=== PATIENT | female | born 1985 | race Caucasian/White ===

== ENCOUNTER 2018-02-19 09:07 | Emergency (ER) | payer MEDICAID ==
[~2018-02-19] VITALS: Ht 162.6 cm; Wt 70.0 kg
[~2018-02-19 09:07] MED LIST: AMAN100T PO; HYDR-3237 PO; IBUP-1484 PO; PARO20TA98 PO; PARO40TA61 PO
[2018-02-19 10:16] LABS: BASOPHILS # (AUTO) 0.05 x10^3/uL (0-0.1); BASOPHILS % (AUTO) 1 % (0-1); EOSINOPHILS # (AUTO) 0.01 x10^3/uL (0-0.4); EOSINOPHILS % (AUTO) 0 % (1-7); LYMPHOCYTES # (AUTO) 1.11 x10^3/uL (1-3.4); LYMPHOCYTES % (AUTO) 12 % (22-44); MD NO; MEAN CORPUSCULAR HEMOGLOBIN 28.9 pg (27.0-34.8); MEAN CORPUSCULAR HGB CONC 33.5 g/dL (32.4-35.8); MEAN CORPUSCULAR VOLUME 86.4 fL (80-100); MEAN PLATELET VOLUME 8.6 fL (7.4-10.4); MONOCYTES # (AUTO) 0.46 x10^3/uL (0.2-0.8); MONOCYTES % (AUTO) 5 % (2-9); NEUTROPHILS # (AUTO) 7.45 x10^3/uL (1.8-6.8); NEUTROPHILS % (AUTO) 82 % (42-75); PLATELET COUNT 397 x10^3/uL (130-400); RED BLOOD COUNT 5.18 x10^6/uL (3.82-5.3); RED CELL DISTRIBUTION WIDTH 12.4 % (9.6-15.2)
[2018-02-19 10:26] LABS: ALBUMIN 3.8 g/dL (3.4-5.0); ANION GAP 8 mmol/L (5-15); CHLORIDE 107 mmol/L (98-107); CREATININE 0.72 mg/dL (0.55-1.02)
[2018-02-19] MEDS ORDERED: KETOROLAC 30 MG/1 ML IVPush ONE (10:30)
[2018-02-19] MEDS ORDERED: METOCLOPRAMIDE 5 MG/ML, 2ML IVPush ONE (10:30)
[2018-02-19] MEDS ORDERED: DIPHENHYDRAMINE 50 MG/ML, 1ML IVPush ONE (10:30)
[2018-02-19] MEDS ORDERED: METOCLOPRAMIDE 5 MG/ML, 2ML ONE (10:42)
[2018-02-19] MEDS ORDERED: KETOROLAC 30 MG/1 ML ONE (10:42)
[2018-02-19] MEDS ORDERED: DIPHENHYDRAMINE 50 MG/ML, 1ML ONE (10:43)
[2018-02-19] MEDS ORDERED: GADOBUTROL 7.5 MMOL/7.5 ML PFS ONE (11:54)
[2018-02-19] MEDS ORDERED: CEPHALEXIN 500 MG CAPSULE PO ONE (12:00)
[2018-02-19 12:15] VITALS: BP 128/74
== END 2018-02-19 15:02 | disposition home or self-care (01) ==
LOC: ED 11:10
DX: H53.131 Sudden visual loss, right eye (principal); R51 Headache; F41.1 Generalized anxiety disorder
CPT/HCPCS: 36415; 70543; 70553; 80048; 82040; 85025; 96374; 96375; 99285; A9585; J1200; J1885; J2765

== ENCOUNTER 2018-06-01 19:23 | Inpatient (IN) | payer MEDICAID ==
[~2018-06-01] VITALS: Ht 165.1 cm; Wt 59.5 kg
[2018-06-01] MEDS ORDERED: ONDANSETRON 2MG/ML, 2ML ONE (19:58)
[2018-06-01] MEDS ORDERED: MORPHINE SULFATE 4 MG/ML, 1ML ONE ×2 (19:58→21:04)
[2018-06-01] MEDS ORDERED: ONDANSETRON 2MG/ML, 2ML IVPush ONE (20:00)
[2018-06-01] MEDS ORDERED: PLEASE ENTER HEIGHT AND WEIGHT MC SCH (20:00)
[2018-06-01] MEDS: MORPHINE SULFATE 4 MG/ML, 1ML IVPush PRN ×2 (20:05→21:07)
--- NOTE | 2018-06-01 21:56 | NUR ---
PT C/O PAIN WHEN SWALLOWING. PT ABLE TO SPEAK IN FULL SENTENCES AND IS ABLE TO SWALLOW SECRETIONS. PT AWAITING CT AND IS VERY IMPATIENT AT THIS TIME. PT MEDICATED AGAIN FOR PAIN. VSS AND WILL CONT TO MONITOR.
--- NOTE | 2018-06-01 21:59 | NUR ---
PT RETURNED FROM CT.
[2018-06-01] MEDS ORDERED: HYDROmorphone 2 MG/ML, 1ML ONE (22:56)
[2018-06-01] MEDS ORDERED: HYDROmorphone 1 MG/ML, 1ML IV ONE (23:00)
--- NOTE | 2018-06-01 23:15 | NUR ---
PT MEDICATED FOR PAIN, PT AWARE SHE IS TO BE ADMITTED. VSS AND WILL CONT TO MONITOR.
[2018-06-01] MEDS ORDERED: BISACODYL 10 MG SUPP PR PRN (23:30)
[2018-06-01] MEDS ORDERED: ONDANSETRON 2MG/ML, 2ML IVPush PRN (23:30)
[2018-06-01 23:39] VITALS: BP 127/89
[2018-06-01] MEDS: SODIUM CHLORIDE 0.9% 1,000 ML IV SCH (23:56)
[2018-06-02] MEDS: NICOTINE 14MG/24 HR PATCH.TD24 TD SCH ×2 (00:38→23:38)
[2018-06-02] MEDS: morphine SULFATE 10 MG/ML, 1ML IVPush PRN ×3 (00:38→06:35)
[2018-06-02 02:57] VITALS: BP 116/77
[2018-06-02 04:55] LABS: BASOPHILS # (AUTO) 0.08 x10^3/uL (0-0.1); BASOPHILS % (AUTO) 1 % (0-1); EOSINOPHILS % (AUTO) 3 % (1-7); LYMPHOCYTES # (AUTO) 2.08 x10^3/uL (1-3.4); LYMPHOCYTES % (AUTO) 29 % (22-44); MD NO; MEAN CORPUSCULAR HEMOGLOBIN 29.6 pg (27.0-34.8); MEAN CORPUSCULAR HGB CONC 34.2 g/dL (32.4-35.8); MEAN CORPUSCULAR VOLUME 86.6 fL (80-100); MEAN PLATELET VOLUME 8.8 fL (7.4-10.4); MONOCYTES % (AUTO) 8 % (2-9); NEUTROPHILS % (AUTO) 59 % (42-75); PLATELET COUNT 324 x10^3/uL (130-400); RED BLOOD COUNT 4.77 x10^6/uL (3.82-5.3); RED CELL DISTRIBUTION WIDTH 12.8 % (9.6-15.2)
[2018-06-02 05:05] LABS: ALBUMIN 3.2 g/dL (3.4-5.0); ANION GAP 6 mmol/L (5-15); CALCIUM 8.5 mg/dL (8.5-10.1); CHLORIDE 105 mmol/L (98-107)
[2018-06-02 05:10] LABS: ALANINE AMINOTRANSFERASE 11 U/L (12-78); ALKALINE PHOSPHATASE 98 U/L (45-117); BILIRUBIN,TOTAL 0.8 mg/dL (0.2-1.0); CREATININE 0.67 mg/dL (0.55-1.02); TOTAL PROTEIN 6.9 g/dL (6.4-8.2)
[2018-06-02 07:11] VITALS: BP 102/68
[2018-06-02] MEDS: SODIUM CHLORIDE 0.9% 1,000 ML IV SCH ×2 (09:17→23:38)
[2018-06-02] MEDS: HYDROmorphone 2 MG/ML, 1ML IVPush PRN ×4 (10:14→22:20)
[2018-06-02 12:14] VITALS: BP 107/71
[2018-06-02 15:45] LABS: AMPHETAMINE SCREEN, URINE Positive (Negative); BARBITURATE SCREEN, URINE Negative (Negative); BENZODIAZEPINE SCREEN, URINE Negative (Negative); CANNABINOID SCREEN, URINE Negative (Negative); COCAINE SCREEN, URINE Negative (Negative); METHADONE SCREEN, URINE Negative (Negative); OPIATE SCREEN, URINE Positive (Negative)
[2018-06-02 19:33] VITALS: BP 109/81
[2018-06-02] MEDS: PAROXETINE 20 MG TABLET PO SCH (21:00)
[2018-06-03 05:06] VITALS: BP 97/68
[2018-06-03] MEDS: HYDROmorphone 2 MG/ML, 1ML IVPush PRN ×5 (05:09→21:14)
[2018-06-03] MEDS: SODIUM CHLORIDE 0.9% 1,000 ML IV SCH ×3 (05:15→21:14)
[2018-06-03 07:06] VITALS: BP 105/73
[2018-06-03 13:19] VITALS: BP 137/72
[2018-06-03] MEDS: PAROXETINE 20 MG TABLET PO SCH (19:09)
[2018-06-03 20:45] VITALS: BP 122/79
[2018-06-03] MEDS: NICOTINE 14MG/24 HR PATCH.TD24 TD SCH (23:03)
[2018-06-04] MEDS: HYDROmorphone 2 MG/ML, 1ML IVPush PRN ×10 (00:47→23:47)
[2018-06-04 01:30] VITALS: BP 126/90
[2018-06-04] MEDS: SODIUM CHLORIDE 0.9% 1,000 ML IV SCH ×2 (03:38→11:17)
[2018-06-04 07:13] VITALS: BP 128/74
[2018-06-04] MEDS ORDERED: MIDAZOLAM 1 MG/ML, 2ML ONE (12:24)
[2018-06-04] MEDS ORDERED: FENTANYL PF 250 MCG/5ML ONE (12:24)
[2018-06-04] MEDS ORDERED: LIDOCAINE 1%-EPI 1:100K, 20ML ONE (12:55)
[2018-06-04] MEDS ORDERED: BALANCED SALT OPHTH IRRIG SOLN 18ML ONE (12:55)
[2018-06-04] MEDS ORDERED: OXYMETAZOLINE NASAL SPRAY 0.05%, 15ML ONE (12:55)
[2018-06-04 13:11] LABS: HCG UR SG 1.007 (1.003-1.030)
[2018-06-04] MEDS ORDERED: LIDOCAINE 1%-EPI 1:100K, 20ML INFIL ONE (14:11)
[2018-06-04] MEDS ORDERED: DIAZEPAM 5 MG/ML, 2ML IVPush PRN (14:30)
[2018-06-04] MEDS ORDERED: ONDANSETRON 2MG/ML, 2ML IV PRN (14:30)
[2018-06-04] MEDS ORDERED: PROMETHAZINE 25 MG/ML, 1ML IV PRN (14:30)
[2018-06-04] MEDS ORDERED: OXYcodone 5 MG/5 ML ORAL.SOL UDC PO PRN (14:30)
[2018-06-04] MEDS ORDERED: MEPERIDINE/PF 25MG/0.5ML IVPush PRN (14:30)
[2018-06-04] MEDS ORDERED: ACETAMINOPHEN 325 MG TABLET PO PRN (14:30)
[2018-06-04] MEDS ORDERED: ONDANSETRON ODT 8 MG PO PRN (14:30)
[2018-06-04] MEDS ORDERED: ONDANSETRON 2MG/ML, 2ML ONE (14:34)
[2018-06-04] MEDS ORDERED: GLYCOPYRROLATE 0.2MG/1ML, 5ML ONE (14:34)
[2018-06-04] MEDS ORDERED: SUCCINYLCHOLINE 20 MG/ML, 10ML ONE (14:34)
[2018-06-04] MEDS ORDERED: DEXAMETHASONE 4 MG/ML, 1ML ONE (14:34)
[2018-06-04] MEDS ORDERED: NEOSTIGMINE 1 MG/ML, 10ML ONE (14:34)
[2018-06-04] MEDS ORDERED: ROCURONIUM 10MG/ML,5ML ONE (14:34)
[2018-06-04] MEDS ORDERED: PROPOFOL 10 MG/ML, 20ML ONE (14:34)
[2018-06-04] MEDS ORDERED: CEFAZOLIN 1,000 MG ONE (14:34)
[2018-06-04] MEDS ORDERED: FENTANYL PF 100 MCG/2ML ONE ×2 (14:35→17:12)
[2018-06-04] MEDS ORDERED: MEPERIDINE/PF 50 MG/ML ONE (14:35)
[2018-06-04] MEDS ORDERED: BACITRACIN OINT 500U/GM, 15 GM ONE (16:39)
[2018-06-04] MEDS ORDERED: HYDROmorphone 2 MG/ML, 1ML ONE (17:13)
[2018-06-04] MEDS: FENTANYL PF 100 MCG/2ML IV PRN ×2 (17:20→17:54)
[2018-06-04] MEDS: AMPICILLIN/SULBACTAM 3 GM in SODIUM CHLORIDE 0.9% 100 ML IV SCH (19:24)
[2018-06-04 20:05] VITALS: BP 108/68
[2018-06-04] MEDS ORDERED: PAROXETINE 20 MG TABLET PO SCH (21:00)
[2018-06-04] MEDS: NICOTINE 14MG/24 HR PATCH.TD24 TD SCH (23:47)
[2018-06-05 00:05] VITALS: BP 125/69
[2018-06-05] MEDS: AMPICILLIN/SULBACTAM 3 GM in SODIUM CHLORIDE 0.9% 100 ML IV SCH ×4 (01:44→19:44)
[2018-06-05] MEDS: HYDROmorphone 2 MG/ML, 1ML IVPush PRN ×5 (03:48→22:32)
[2018-06-05 04:08] VITALS: BP 110/71
[2018-06-05 06:01] LABS: ANION GAP 8 mmol/L (5-15); BASOPHILS # (AUTO) 0.01 x10^3/uL (0-0.1); BASOPHILS % (AUTO) 0 % (0-1); CALCIUM 8.5 mg/dL (8.5-10.1); CHLORIDE 103 mmol/L (98-107); EOSINOPHILS % (AUTO) 0 % (1-7); LYMPHOCYTES # (AUTO) 0.57 x10^3/uL (1-3.4); LYMPHOCYTES % (AUTO) 5 % (22-44); MD NO; MEAN CORPUSCULAR HEMOGLOBIN 29.5 pg (27.0-34.8); MEAN CORPUSCULAR HGB CONC 33.8 g/dL (32.4-35.8); MEAN CORPUSCULAR VOLUME 87.2 fL (80-100); MEAN PLATELET VOLUME 8.5 fL (7.4-10.4); MONOCYTES # (AUTO) 0.38 x10^3/uL (0.2-0.8); MONOCYTES % (AUTO) 3 % (2-9); NEUTROPHILS # (AUTO) 11.59 x10^3/uL (1.8-6.8); NEUTROPHILS % (AUTO) 92 % (42-75); PLATELET COUNT 331 x10^3/uL (130-400); RED CELL DISTRIBUTION WIDTH 12.4 % (9.6-15.2)
[2018-06-05 06:03] LABS: CREATININE 0.53 mg/dL (0.55-1.02)
[2018-06-05] MEDS: OXYcodone IR 5MG TABLET PO PRN (08:17)
[2018-06-05 09:13] VITALS: BP 113/52
[2018-06-05] MEDS: ACETAMINOPHEN 325 MG TABLET PO SCH ×4 (11:28→23:36)
[2018-06-05 12:26] VITALS: BP 120/81
[2018-06-05] MEDS: GABAPENTIN 300 MG CAPSULE PO PRN (17:38)
[2018-06-05 19:05] VITALS: BP 128/82
[2018-06-05] MEDS: NICOTINE 14MG/24 HR PATCH.TD24 TD SCH (23:30)
[2018-06-06 01:18] VITALS: BP 129/86
[2018-06-06] MEDS: AMPICILLIN/SULBACTAM 3 GM in SODIUM CHLORIDE 0.9% 100 ML IV SCH ×4 (01:39→19:44)
[2018-06-06] MEDS: OXYcodone IR 5MG TABLET PO PRN ×3 (03:23→20:18)
[2018-06-06] MEDS: ACETAMINOPHEN 325 MG TABLET PO SCH ×6 (03:30→23:30)
[2018-06-06] MEDS: HYDROmorphone 2 MG/ML, 1ML IVPush PRN ×4 (04:56→22:09)
[2018-06-06 05:27] LABS: BASOPHILS # (AUTO) 0.05 x10^3/uL (0-0.1); BASOPHILS % (AUTO) 1 % (0-1); EOSINOPHILS # (AUTO) 0.09 x10^3/uL (0-0.4); EOSINOPHILS % (AUTO) 1 % (1-7); LYMPHOCYTES # (AUTO) 2.48 x10^3/uL (1-3.4); LYMPHOCYTES % (AUTO) 29 % (22-44); MD NO; MEAN CORPUSCULAR HEMOGLOBIN 29.4 pg (27.0-34.8); MEAN CORPUSCULAR VOLUME 86.5 fL (80-100); MEAN PLATELET VOLUME 8.3 fL (7.4-10.4); MONOCYTES # (AUTO) 0.52 x10^3/uL (0.2-0.8); MONOCYTES % (AUTO) 6 % (2-9); NEUTROPHILS # (AUTO) 5.52 x10^3/uL (1.8-6.8); NEUTROPHILS % (AUTO) 64 % (42-75); PLATELET COUNT 342 x10^3/uL (130-400); RED BLOOD COUNT 4.31 x10^6/uL (3.82-5.3); RED CELL DISTRIBUTION WIDTH 12.3 % (9.6-15.2)
[2018-06-06 05:30] LABS: CHLORIDE 106 mmol/L (98-107)
[2018-06-06 05:51] LABS: ALBUMIN 2.9 g/dL (3.4-5.0); ANION GAP 9 mmol/L (5-15); CALCIUM 8.3 mg/dL (8.5-10.1); CREATININE 0.52 mg/dL (0.55-1.02)
[2018-06-06] MEDS ORDERED: POTASSIUM CHLORIDE 60 MEQ in SODIUM CHLORIDE 0.9% 1,000 ML IV ONE (07:00)
[2018-06-06 07:51] VITALS: BP 133/91
[2018-06-06 15:22] VITALS: BP 126/88
[2018-06-06] MEDS: NICOTINE 14MG/24 HR PATCH.TD24 TD SCH (23:30)
[2018-06-07 00:40] VITALS: BP 134/88
[2018-06-07] MEDS: OXYcodone IR 5MG TABLET PO PRN ×3 (01:13→11:45)
[2018-06-07] MEDS: AMPICILLIN/SULBACTAM 3 GM in SODIUM CHLORIDE 0.9% 100 ML IV SCH ×3 (01:13→13:30)
[2018-06-07] MEDS: HYDROmorphone 2 MG/ML, 1ML IVPush PRN ×3 (02:47→10:47)
[2018-06-07] MEDS: ACETAMINOPHEN 325 MG TABLET PO SCH ×3 (04:19→11:45)
[2018-06-07 05:50] LABS: CHLORIDE 103 mmol/L (98-107)
[2018-06-07 05:54] LABS: ALBUMIN 2.7 g/dL (3.4-5.0); ANION GAP 6 mmol/L (5-15); CALCIUM 8.6 mg/dL (8.5-10.1); CREATININE 0.57 mg/dL (0.55-1.02)
[2018-06-07] MEDS ORDERED: POTASSIUM CHLORIDE 20 MEQ TAB.ER.PRT PO ONE (06:30)
[2018-06-07 07:39] VITALS: BP 117/81
[2018-06-07] MEDS: GABAPENTIN 300 MG CAPSULE PO PRN (09:37)
[2018-06-07] MEDS ORDERED: OXYcodone IR 5MG TABLET PO PRN (12:00)
[2018-06-07] MEDS ORDERED: AMOX1TAB64 PO (13:08)
[2018-06-07] MEDS ORDERED: NICO-486 TD (13:08)
[2018-06-07] MEDS ORDERED: OXYC10TA6 PO (13:44)
[2018-06-07] MEDS ORDERED: HYDROmorphone 1 MG/ML, 1ML IV PRN (15:00)
== END 2018-06-07 14:25 | disposition home or self-care (01) | DRG 132 ==
LOC: ED 20:12 → EDIP 23:02 → 4NOR 23:37
PROVIDERS: ADMIT Hospitalist; ATTEND Hospitalist
PROC: 0NST04Z Reposition Right Mandible with Internal Fixation Device, Open Approach (ICD-10-PCS; principal; 2018-06-04 14:00)
DX: S02.66XA Fracture of symphysis of mandible, initial encounter for closed fracture (principal); S02.601A Fracture of unspecified part of body of right mandible, initial encounter for closed fracture; D72.829 Elevated white blood cell count, unspecified; E87.6 Hypokalemia; F17.210 Nicotine dependence, cigarettes, uncomplicated; F41.9 Anxiety disorder, unspecified; G35 Multiple sclerosis; Y04.8XXA Assault by other bodily force, initial encounter; S02.641A Fracture of ramus of right mandible, initial encounter for closed fracture; G43.909 Migraine, unspecified, not intractable, without status migrainosus; G89.11 Acute pain due to trauma; M19.90 Unspecified osteoarthritis, unspecified site; R00.0 Tachycardia, unspecified; M41.9 Scoliosis, unspecified; Z59.0 Homelessness; Z85.41 Personal history of malignant neoplasm of cervix uteri; Y93.89 Activity, other specified; Y92.89 Other specified places as the place of occurrence of the external cause; Y99.8 Other external cause status; Z91.013 Allergy to seafood; Z88.8 Allergy status to other drugs, medicaments and biological substances; Z91.018 Allergy to other foods; Z98.51 Tubal ligation status
CPT/HCPCS: 36415; 99285; J3490; 70486; 80048; 80053; 80307; 81025; 82040; 85025; 96374; 96375; 96376; C1713; G0378; J0295; J0690; J1100; J1170; J2175; J2250; J2405; J2704; J2710; J3010; J3480; J0330; J2270; J7030

== ENCOUNTER 2018-06-11 14:25 | Emergency (ER) | payer MEDICAID ==
[~2018-06-11] VITALS: Ht 165.1 cm; Wt 57.0 kg
[~2018-06-11 14:25] MED LIST changes: +AMOX1TAB64 PO; +NICO-486 TD; +OXYC10TA6 PO
--- NOTE | 2018-06-11 14:45 | NUR ---
DR. POSEY AT BEDSIDE. PATIENT IN NO DISTRESS.
[2018-06-11] MEDS ORDERED: MORPHINE SULFATE 4 MG/ML, 1ML ONE ×2 (15:00→15:44)
[2018-06-11] MEDS ORDERED: ONDANSETRON 2MG/ML, 2ML IVPush ONE (15:00)
[2018-06-11] MEDS ORDERED: ONDANSETRON 2MG/ML, 2ML ONE (15:00)
[2018-06-11] MEDS: MORPHINE SULFATE 4 MG/ML, 1ML IVPush PRN ×2 (15:03→15:51)
[2018-06-11 15:16] LABS: ALBUMIN 3.7 g/dL (3.4-5.0); ANION GAP 7 mmol/L (5-15); CALCIUM 9.7 mg/dL (8.5-10.1); CHLORIDE 100 mmol/L (98-107); CREATININE 0.88 mg/dL (0.55-1.02)
[2018-06-11 15:20] LABS: TROPONIN I < 0.015 ng/mL (0.000-0.045)
[2018-06-11 15:26] LABS: BASOPHILS # (AUTO) 0.09 x10^3/uL (0-0.1); BASOPHILS % (AUTO) 2 % (0-1); EOSINOPHILS # (AUTO) 0.07 x10^3/uL (0-0.4); EOSINOPHILS % (AUTO) 1 % (1-7); LYMPHOCYTES % (AUTO) 22 % (22-44); MD NO; MEAN CORPUSCULAR HEMOGLOBIN 28.5 pg (27.0-34.8); MEAN CORPUSCULAR HGB CONC 33.5 g/dL (32.4-35.8); MEAN CORPUSCULAR VOLUME 85.2 fL (80-100); MEAN PLATELET VOLUME 7.9 fL (7.4-10.4); MONOCYTES # (AUTO) 0.38 x10^3/uL (0.2-0.8); MONOCYTES % (AUTO) 6 % (2-9); NEUTROPHILS # (AUTO) 4.09 x10^3/uL (1.8-6.8); NEUTROPHILS % (AUTO) 69 % (42-75); PLATELET COUNT 437 x10^3/uL (130-400); RED BLOOD COUNT 5.85 x10^6/uL (3.82-5.3); RED CELL DISTRIBUTION WIDTH 12.2 % (9.6-15.2)
--- NOTE | 2018-06-11 15:52 | NUR ---
PATIENT REQUESTING MEDICINE FOR HER YEAST INFECTION. DR. POSEY NOTIFIED. DIFLUCAN ORDERED FROM PHARMACY. PATIENT MEDICATED WITH THE SECOND DOSE OF MORPINE IVP FOR PAIN OF 5/10. PT TO CT AT THIS TIME.
[2018-06-11] MEDS ORDERED: FLUCONAZOLE 50 MG TABLET PO ONE (16:00)
[2018-06-11 16:23] VITALS: BP 107/81
[2018-06-11] MEDS ORDERED: KETOROLAC 60 MG/2 ML IVPush ONE (16:30)
[2018-06-11] MEDS ORDERED: KETOROLAC 30 MG/1 ML ONE (16:33)
--- NOTE | 2018-06-11 16:41 | NUR ---
PATIENT MEDICATED WITH TORADOL FOR PAIN.
--- NOTE | 2018-06-11 18:03 | NUR ---
Patient/Caregiver given discharge instructions and they have confirmed that they understand the instructions. Patient ambulatory with steady gait.
== END 2018-06-11 18:04 | disposition home or self-care (01) ==
LOC: ED 14:40
DX: G89.18 Other acute postprocedural pain (principal); R68.84 Jaw pain
CPT/HCPCS: 36415; 71275; 80048; 82040; 84484; 84703; 85025; 96374; 96375; 96376; 99284; J1885; J2405; 99155

== ENCOUNTER 2018-06-19 18:15 | Emergency (ER) | payer MEDICAID ==
[~2018-06-19] VITALS: Ht 162.6 cm; Wt 57.0 kg
[2018-06-19 18:33] VITALS: BP 127/87
[2018-06-19] MEDS ORDERED: BACITRACIN ZINC OINT 500U/GM, 0.9 GM ONE (19:37)
== END 2018-06-19 19:40 | disposition home or self-care (01) ==
LOC: ED 18:40
DX: S01.81XD Laceration without foreign body of other part of head, subsequent encounter (principal); X58.XXXD Exposure to other specified factors, subsequent encounter
CPT/HCPCS: 99282

== ENCOUNTER 2019-09-28 20:52 | Emergency (ER) | payer MEDICAID ==
[~2019-09-28] VITALS: Ht 165.1 cm; Wt 77.6 kg
[~2019-09-28 20:52] MED LIST changes: -IBUP-1484 PO; +IBUP-1902 PO
[2019-09-28 20:54] VITALS: BP 131/96
--- NOTE | 2019-09-28 21:17 | NUR ---
PT REPORTED TO RN SHE WANTED TO LEAVE SINCE THE BLEEDING HAD STOPPED.
== END 2019-09-28 21:27 | disposition left against medical advice (07) ==
LOC: ED 20:53
DX: M79.644 Pain in right finger(s) (principal); Z53.21 Procedure and treatment not carried out due to patient leaving prior to being seen by health care provider